=== PATIENT | female | born 1980 | race Caucasian/White ===

== ENCOUNTER 2021-03-08 21:37 | Emergency (ER) | payer OTHER ==
[2021-03-08 22:50] LABS: BILIRUBIN NEGATIVE (NEGATIVE); BLOOD TRACE-INTACT Ery/uL (NEGATIVE); CLARITY CLEAR (CLEAR); COLOR YELLOW (YELLOW); GLUCOSE (U) NORMAL (NORMAL); LEUKOCYTES 1+ Leu/uL (NEGATIVE); NITRITE NEGATIVE (NEGATIVE); PROTEIN NEGATIVE (NEGATIVE); SPECIFIC GRAVITY 1.025 (1.001-1.030); UROBILINOGEN 0.2 mg/dL (0.2-1.0)
[2021-03-08 22:51] LABS: AMPHETAMINES NEGATIVE (NEGATIVE); BARBITURATES NEGATIVE (NEGATIVE); ECSTASY (MDMA) NEGATIVE (NEGATIVE); MARIJUANA (THC) NEGATIVE (NEGATIVE); METHADONE NEGATIVE (NEGATIVE); OPIATES NEGATIVE (NEGATIVE); OXYCODONE NEGATIVE (NEGATIVE)
[2021-03-08 22:52] LABS: HCG (URINE) SCREEN NEGATIVE (NEGATIVE)
[2021-03-08 22:57] LABS: AMORPHOUS URATES CRYSTALS LARGE; BACTERIA 3+; MUCOUS TRACE
[2021-03-08 23:01] LABS: BASOPHIL 0.5 % (0-2); EOSINOPHIL 1.7 % (0-5); HCT 42.7 % (37.0-47.0); HGB 13.5 g/dl (12.5-16.0); LYMPHOCYTE 21.5 % (15-48); MCH 28.7 pg (25.0-31.0); MCHC 31.6 g/dL (32.0-36.0); MCV 90.7 fL (78.0-100.0); MONOCYTE 5.6 % (0-12); MPV 10.6 fL (6.0-9.5); NEUTROPHIL 70.2 % (41-80); NRBC 0; PLT 316 K/uL (150-400); RBC 4.71 M/uL (4.20-5.40); RDW 13.9 % (11.5-14.0); WBC 12.6 K/uL (4.0-10.5)
[2021-03-08 23:41] LABS: ALBUMIN 3.3 g/dL (3.4-5.0); BILIRUBIN - TOTAL 0.4 mg/dL (0.2-1.0); BUN/CREAT RATIO (CALC) 13.5 RATIO; C-REACTIVE PROTEIN 0.9 mg/dL (<=0.90); CREATININE 0.74 mg/dL (0.51-0.95); GLOBULIN (CALCULATION) 3.8 g/dL; TOTAL PROTEIN 7.1 g/dL (6.4-8.2)
[2021-03-09] MEDS ORDERED: ZOFRAN4 M1 PO (02:10)
[2021-03-09] MEDS ORDERED: AUGMENTIN 875-1 EACH PO (02:10)
== END 2021-03-09 02:40 | disposition home or self-care (01) ==
LOC: FER 21:37
PROVIDERS: Internal Medicine
DX: K85.90 Acute pancreatitis without necrosis or infection, unspecified (principal); K80.50 Calculus of bile duct without cholangitis or cholecystitis without obstruction; N39.0 Urinary tract infection, site not specified; R07.9 Chest pain, unspecified; Z98.890 Other specified postprocedural states; Z88.2 Allergy status to sulfonamides
CPT/HCPCS: 36415; 80053; 80305; 81001; 83690; 84484; 84703; 85025; 85379; 86140

== ENCOUNTER 2021-09-30 02:47 | Emergency (ER) | payer OTHER ==
[~2021-09-30 02:47] MED LIST: AUGMENTIN 875-1 EACH PO; ZOFRAN4 M1 PO
[2021-09-30 04:45] LABS: BASOPHIL 0.5 % (0-2); EOSINOPHIL 1.7 % (0-5); HCT 42.8 % (37.0-47.0); HGB 13.5 g/dl (12.5-16.0); LYMPHOCYTE 24.4 % (15-48); MCH 27.6 pg (25.0-31.0); MCHC 31.5 g/dL (32.0-36.0); MCV 87.5 fL (78.0-100.0); MONOCYTE 5.9 % (0-12); MPV 11.1 fL (6.0-9.5); NEUTROPHIL 67.2 % (41-80); NRBC 0; PLT 272 K/uL (150-400); RBC 4.89 M/uL (4.20-5.40); RDW 15.4 % (11.5-14.0); WBC 9.2 K/uL (4.0-10.5)
[2021-09-30 05:04] LABS: BUN/CREAT RATIO (CALC) 17.9 RATIO; CREATININE 0.67 mg/dL (0.51-0.95); POTASSIUM 3.8 mmol/L (3.5-5.1)
[2021-09-30] MEDS ORDERED: NORCO 5-325 TA1 EACH PO (05:57)
[2021-09-30] MEDS ORDERED: MEDROL 4MG DOSEP4 MG PO (05:57)
[2021-09-30] MEDS ORDERED: CYCLOBENZAPRINE10 MG PO (05:57)
== END 2021-09-30 06:27 | disposition home or self-care (01) ==
LOC: FER 02:47
PROVIDERS: Internal Medicine
DX: M54.2 Cervicalgia (principal); M25.511 Pain in right shoulder; Z88.2 Allergy status to sulfonamides
CPT/HCPCS: 36415; 80048; 83880; 84145; 84484; 85025; 93005; J1885; J7512